=== PATIENT | male | born 1990 | race Caucasian/White ===

== ENCOUNTER → 2016-05-08 | Outpatient (CLI) | payer OTHER ==
--- NOTE | 2016-05-08 11:09 | DIAGNOSTIC IMAGING REPORT ---
LUMBAR SPINE MIN 4 VIEWS CLINICAL HISTORY: LUMBAR TRANSVERSE FX pain COMPARISON STUDY: No previous studies for comparison. FINDINGS: There are 5 lumbar type vertebral bodies present. No vertebral body fractures or subluxations are visualized. There are suspected left-sided transverse process fractures at the L3 and L4 levels. IMPRESSION: 1. Suspected fractures of the left L3 and L4 transverse processes 2. No vertebral body fractures or subluxations identified. Electronically signed by: Khoi Foster M.D. 05/08/2016 11:08 AM Dictated Date/Time: 05/08/2016 11:07 AM
== END | disposition home or self-care (01) ==
LOC: C.RDSM 09:58
PROVIDERS: ATTEND Family Medicine
DX: Z87.81 Personal history of (healed) traumatic fracture (principal)